=== PATIENT | male | born 1990 | race Caucasian/White ===

== ENCOUNTER 2019-11-22 14:06 | Emergency (ER) | payer OTHER ==
[~2019-11-22] VITALS: Ht 188 cm; Wt 104.5 kg
[2019-11-22 14:09] VITALS: BP 143/73
== END 2019-11-22 16:54 | disposition home or self-care (01) ==
LOC: ER 14:07
DX: S99.811A Other specified injuries of right ankle, initial encounter (principal); S93.04XA Dislocation of right ankle joint, initial encounter; M25.571 Pain in right ankle and joints of right foot; M25.471 Effusion, right ankle; X58.XXXA Exposure to other specified factors, initial encounter; Y93.89 Activity, other specified; Y92.89 Other specified places as the place of occurrence of the external cause; Y99.8 Other external cause status
CPT/HCPCS: 29515; 73610; 99283